=== PATIENT | female | born 2000 | race Caucasian/White ===

== ENCOUNTER → 2021-05-12 13:50 | Outpatient (BNVA) | payer MEDICAID, SELFPAY | PROVIDERS: PCP Nurse Practitioner Family; Referring Provider Nurse Practitioner Family; Visit Provider Obstetrics & Gynecology | DX: Z11.3 Encounter for screening for infections with a predominantly sexual mode of transmission (principal); Z01.419 Encounter for gynecological examination (general) (routine) without abnormal findings | CPT/HCPCS: 87491; 87591; 87661; 88175 ==

== ENCOUNTER → 2021-07-31 13:23 | Outpatient (BNVA) | payer MEDICAID, SELFPAY | PROVIDERS: PCP Nurse Practitioner Family; Visit Provider Psychiatry & Neurology Psychiatry | DX: F43.12 Post-traumatic stress disorder, chronic (principal); F60.3 Borderline personality disorder; F33.2 Major depressive disorder, recurrent severe without psychotic features; F41.1 Generalized anxiety disorder; F17.210 Nicotine dependence, cigarettes, uncomplicated | CPT/HCPCS: 99204 ==

== ENCOUNTER → 2021-10-24 09:41 | Outpatient (BNVA) | payer OTHER, SELFPAY | PROVIDERS: PCP Nurse Practitioner Family; Visit Provider Psychiatry & Neurology Psychiatry | DX: F41.1 Generalized anxiety disorder (principal); Z79.899 Other long term (current) drug therapy | CPT/HCPCS: 80061; 83036; 83721 ==

== ENCOUNTER → 2022-12-07 14:23 | Outpatient (BNVA) | payer MEDICAID, SELFPAY ==
[2022-12-03 07:09] VITALS: BP 120/68; BMI 29.0
== END ==
PROVIDERS: PCP Nurse Practitioner Family; Visit Provider Psychiatry & Neurology Psychiatry
DX: F33.2 Major depressive disorder, recurrent severe without psychotic features (principal); Z79.899 Other long term (current) drug therapy
CPT/HCPCS: 80061; 83036

== ENCOUNTER → 2023-11-27 10:07 | Outpatient (BNVA) | payer OTHER, MEDICAID, SELFPAY ==
[2022-12-13 14:22] VITALS: BP 116/73; BMI 36.3
== END ==
PROVIDERS: PCP Nurse Practitioner Family; Visit Provider Nurse Practitioner Women's Health
DX: E28.2 Polycystic ovarian syndrome (principal)
CPT/HCPCS: 84144

== ENCOUNTER → 2023-12-17 11:03 | Outpatient (BNVA) | payer OTHER, MEDICAID, SELFPAY ==
[2022-12-13 14:22] VITALS: BP 116/73; BMI 36.3
== END ==
PROVIDERS: PCP Nurse Practitioner Family; Visit Provider Nurse Practitioner Women's Health
DX: N88.8 Other specified noninflammatory disorders of cervix uteri (principal); Q50.39 Other congenital malformation of ovary
CPT/HCPCS: 76830

== ENCOUNTER → 2023-12-25 14:00 | Outpatient (BNVA) | payer MEDICAID, SELFPAY ==
[2022-12-13 14:22] VITALS: BP 116/73; BMI 36.3
== END ==
PROVIDERS: PCP Nurse Practitioner Family; Visit Provider Nurse Practitioner Women's Health
DX: N92.6 Irregular menstruation, unspecified (principal)
CPT/HCPCS: 80053

== ENCOUNTER → 2024-01-02 14:40 | Outpatient (BNVA) | payer OTHER, SELFPAY ==
[2022-12-13 14:22] VITALS: BP 116/73; BMI 36.3
== END ==
PROVIDERS: PCP Nurse Practitioner Family; Visit Provider Psychiatry & Neurology Psychiatry
DX: F33.2 Major depressive disorder, recurrent severe without psychotic features (principal); F60.3 Borderline personality disorder; Z79.899 Other long term (current) drug therapy
CPT/HCPCS: 80061; 83036

== ENCOUNTER → 2024-03-18 10:00 | Outpatient (BNVA) | payer MEDICARE, OTHER, MEDICAID, SELFPAY ==
[2024-01-07 11:16] VITALS: BP 136/85; BMI 45.6
== END ==
PROVIDERS: PCP Nurse Practitioner Family; Visit Provider Internal Medicine
DX: E28.2 Polycystic ovarian syndrome (principal); R73.03 Prediabetes; N28.9 Disorder of kidney and ureter, unspecified
CPT/HCPCS: 36415; 80048; 99204

== ENCOUNTER → 2024-05-01 13:32 | Outpatient (BNVA) | payer MEDICARE, OTHER, MEDICAID, SELFPAY ==
[2024-01-07 11:16] VITALS: BP 136/85; BMI 45.6
== END ==
PROVIDERS: PCP Nurse Practitioner Family; Visit Provider Nurse Practitioner Women's Health
DX: Z31.9 Encounter for procreative management, unspecified (principal); E28.2 Polycystic ovarian syndrome
CPT/HCPCS: 84144

== ENCOUNTER 2024-05-27 16:18 | Emergency (ER) | payer OTHER, MEDICAID, SELFPAY ==
[2024-01-07 11:16] VITALS: BP 136/85; BMI 45.6
--- NOTE | 2024-05-27 16:19 | XRR_ITS ---
PROCEDURE INFORMATION: Exam: XR Left Ankle Exam date and time: 05/27/2024 5:05 PM Age: 24 years old Clinical indication: Pain; Ankle; Left; Additional info: Ankle pain and swelling TECHNIQUE: Imaging protocol: Radiologic exam of the left ankle. Views: 3 or more views. COMPARISON: No relevant prior studies available. FINDINGS: Bones/joints: Normal. Soft tissues: Lateral soft tissue swelling. XR/XR ankle LT min 3V* [id number] IMPRESSION: No acute osseous abnormality.
[2024-05-27 16:22] VITALS: BP 122/80; PULSE 89; RESP 17; TEMP 36.6; O2SAT 96
--- NOTE | 2024-05-27 17:48 | W.ED.EXTPRO ---
HPI - Extremity Problem General: Chief complaint: Extremity Injury, Lower Stated complaint: left ankle pain Time Seen by Provider: 05/27/24 16:20 Source: patient Mode of arrival: wheelchair Limitations: no limitations History of Present Illness: Patient is a 24-year-old female who presents the emergency department for left ankle injury just prior to arrival. Patient states that she fell and twisted her left ankle, inversion injury. No radiation of the pain, noted to be mild at this time. No previous fractures or injuries to this foot. No other injuries with the fall. Vitals unremarkable at this time. MD Complaint: joint swelling and joint pain Onset (ago): hour(s) Pain Consistency: constant Location: left and lower extremity (Ankle) Radiation: none Exacerbating factors: weight bearing and walking Associated symptoms: Reports no associated symptoms; Deny chest pain, fever(s) or rash Related Data Home Medications ?Medication ?Instructions ?Recorded ?Confirmed metformin 500 mg tablet 500 mg PO DAILY 04/01/24 05/27/24 Previous Rx's ?Medication ?Instructions ?Recorded albuterol sulfate 90 mcg/actuation 2 inh inhalation Q6H PRN shortness 06/25/22 breath activated powder inhaler of breath or wheezing 30 days #1 ea hydroxyzine pamoate 25 mg capsule 25 mg PO QID PRN anxiety #120 caps 01/03/24 trazodone 50 mg tablet 100 mg (2 x 50 mg) PO .Qhs PRN 01/03/24 insomnia #60 tabs letrozole 2.5 mg tablet 5 mg (2 x 2.5 mg) PO DAILY 5 days 05/04/24 #10 tabs medroxyprogesterone 10 mg tablet 10 mg PO DAILY #10 tabs 05/04/24 (Provera) aripiprazole 15 mg tablet (Abilify) 15 mg PO DAILY #30 tabs 05/22/24 buspirone 10 mg tablet 10 mg PO BID #60 tabs 05/22/24 fluoxetine 40 mg capsule 80 mg (2 x 40 mg) PO DAILY #60 caps 05/22/24 Allergies Allergy/AdvReac Type Severity Reaction Status Date / Time morphine Allergy Unknown Verified 05/27/24 16:25 Sulfa (Sulfonamide Allergy UNKNOWN Verified 05/27/24 16:25 Antibiotics) Review of Systems General: Reports: 10 or more systems reviewed and unremarkable except in HPI and below Const: Denies: fever(s) or chills Card: Denies: chest pain Resp: Denies: dyspnea or productive cough GI: Denies: abdominal pain, nausea, vomiting or diarrhea : Denies: flank pain Musc: Reports: joint pain and joint swelling; Denies: neck pain, back pain, extremity pain, extremity swelling, joint redness, joint warmth, limited range of motion or muscle weakness Skin/Breast: Denies: rash Neuro: Denies: headache(s), numbness in extremities or weakness in extremities PFSH ED PFSH: Medical History Short-term memory loss PTSD (post-traumatic stress disorder) Depression Anxiety Bipolar 1 disorder ADHD Schizophrenia Psychiatric care Surgical History History of esophagogastroduodenoscopy (EGD) Family History Grandmother Breast cancer Maternal Clotting disorder Maternal Diabetes Maternal Thyroid disease Maternal Grandfather Cancer nose Hyperlipidemia Paternal Mother Hypertension Other Borderline personality disorder Generalized anxiety disorder Major depressive disorder, recurrent severe without psychotic features Post-traumatic stress disorder, chronic Denies family history of CAD (coronary artery disease) Chronic kidney disease (CKD) Bleeding disorder Stroke Social History Smoking and tobacco/nicotine status: never used tobacco/nicotine Quit status (tobacco/nicotine): has tried quititng Number of times tried to quit tobacco: 2 Second hand smoke exposure: Yes Alcohol intake: current Alcohol intake frequency: holidays/special occasions only Alcohol type: hard liquor Substance/Drug Use: never Adopted: No Caregiver/support person: No Lives independently: No Household members: spouse Housing: Other Details: [facility]ower Marital status: Number of children: 0 Highest education level completed: Associate Degree: Occupational, Technical, Vocational Program Education level details: In photography service: No Current occupational status: student and disabled Current occupational exposures/hazards: No Pets and animals: Yes Pets & animals: cat(s) and dog(s) Leisure activites: art, hunting, fishing and other Leisure activities details: swim, crochett, photography Sexually active: Yes Do you think of yourself as: Straight/Heterosexual Current gender identity: Female Jimena/[employer]: [employer] Special jimena needs: No Agree to transfusion: Yes Physical Exam Const: COMMON NORMALS: no acute distress, patient oriented x3, no limitations, healthy appearing, alert and well nourished HENMT: COMMON NORMALS: normocephalic and atraumatic HEAD & SCALP: normocephalic and atraumatic Neck/C-Spine: COMMON NORMALS: full ROM, supple and no meningeal signs Resp: COMMON NORMALS: normal respiratory effort, No use of accessory muscles and clear to auscultation bilaterally AUSCULTATION: clear to auscultation bilaterally Cardio: COMMON NORMALS: regular rate and regular rhythm RATE: regular rate RHYTHM: regular rhythm Extremity: COMMON NORMALS: full ROM, capillary refill normal and no clubbing, cyanosis or edema NARRATIVE EXTREMITY EXAM: Mild swelling to the left lateral malleolus with positive tender to palpation. Positive inversion ankle testing. Negative anterior drawer. Distal pulses palpable. Full range of motion at the ankle and foot. No proximal fibular tenderness. Neuro: COMMON NORMALS: patient oriented x3, moves all extremities, no focal motor deficits and no sensory deficits noted SENSORIUM/ORIENTATION: Yes alert MENINGEAL SIGNS: Yes no meningeal signs Skin: COMMON NORMALS: no rashes or lesions noted GENERAL SKIN EXAM: no rashes or lesions noted Course Vital Signs: Vital signs: Vital Signs Temperature 97.8 F 05/27/24 16:22 Pulse Rate 89 05/27/24 16:22 Respiratory Rate 17 05/27/24 16:22 Blood Pressure 122/80 05/27/24 16:22 Pulse Oximetry 96 05/27/24 16:22 Oxygen Delivery Me thod Room Air 05/27/24 16:22 MDM - Extremity (Nontraumatic) Medical Decision Making Patient presenting with left ankle injury, inversion. Swelling and tender on exam to the left lateral malleolus, x-ray did not demonstrate any fracture. Suspect ankle sprain will give her compression bandage and have her treat conservatively at home. Will follow-up routinely with regular doctor. Lab Data Radiology Impressions Ankle X-Ray 05/27/24 16:19 IMPRESSION: No acute osseous abnormality. All radiology interpretation(s) finalized by discharge Discharge Plan Discharge Patient Disposition: Home Clinical Impression: Left ankle sprain Condition: Stable Prescriptions: No Action aripiprazole [Abilify] 15 mg tablet 15 mg PO DAILY Qty: 30 2RF buspirone 10 mg tablet 10 mg PO BID Qty: 60 2RF fluoxetine 40 mg capsule 80 mg PO DAILY Qty: 60 2RF metformin 500 mg tablet 500 mg PO DAILY albuterol sulfate 90 mcg/actuation aerosol powdr breath activated 2 inh inhalation Q6H PRN (Reason: shortness of breath or wheezing) 30 Days Qty: 1 2RF hydroxyzine pamoate 25 mg capsule 25 mg PO QID PRN (Reason: anxiety) Qty: 120 2RF trazodone 50 mg tablet 100 mg PO .Qhs PRN (Reason: insomnia) Qty: 60 2RF letrozole 2.5 mg tablet 5 mg PO DAILY 5 Days Qty: 10 0RF Rx Instructions: take on cycles days 2 through 6 of menstrual cycle medroxyprogesterone [Provera] 10 mg tablet 10 mg PO DAILY Qty: 10 2RF Rx Instructions: take one tab daily for 10 days if you have not had a period for 35 days Discharge Orders: Discharge ED (Routine); Ordered 05/27/24 Ordered By: James Leon Referrals: Maria Elena Belcher, MANUFACTURING MAINTENANCE MECHANIC [Primary Care Provider] - Patient Instructions: Ankle Sprain (ED) Activity Restrictions/Additional Instructions: Rest, ice, compression, and elevation. Ibuprofen and Tylenol for pain. Range of motion exercises and weightbearing as tolerated. Follow-up with regular doctor. Print Language: Maori Coding Level of Care Code ED System Support Analyst for [employer]
[2024-05-27 17:55] VITALS: BP 128/84; PULSE 84; O2SAT 96
== END 2024-05-27 17:59 | disposition home or self-care (01) ==
PROVIDERS: Emergency Provider Physician Assistant; PCP Nurse Practitioner Family
DX: S93.402A Sprain of unspecified ligament of left ankle, initial encounter (principal); Z79.84 Long term (current) use of oral hypoglycemic drugs; W19.XXXA Unspecified fall, initial encounter
CPT/HCPCS: 73610; 84144; 99283

== ENCOUNTER → 2024-08-26 15:33 | Outpatient (BNVA) | payer OTHER, SELFPAY ==
[2024-01-07 11:16] VITALS: BP 136/85; BMI 45.6
== END ==
PROVIDERS: PCP Nurse Practitioner Family; Visit Provider Nurse Practitioner Women's Health
DX: Z01.419 Encounter for gynecological examination (general) (routine) without abnormal findings (principal); Z11.3 Encounter for screening for infections with a predominantly sexual mode of transmission
CPT/HCPCS: 86592; 86695; 86696; 86705; 86706; 86709; 86803; 87340; 87806; 88175